=== PATIENT | male | born 1980 | race Caucasian/White ===

== ENCOUNTER → 2016-08-04 | Outpatient (CLI) | payer OTHER ==
--- NOTE | 2016-08-04 17:43 | DX ---
Left Clavicle Series, Two Views, at 1649 hours History: Possible clavicle fracture. Injured clavicle playing hockey last evening. (S42.009A). Findings: There is mild widening of the left AC joint, with mild elevation of the distal head of th e left clavicle, compatible with grade 2 AC joint subluxation. There is a nondisplaced fracture peggy pected, left transverse process of T1 and possibly C7. There is a questionable fracture posterior l eft 3rd rib at the costovertebral junction. No additional fractures are appreciated. The glenohume ral joint is normal in appearance. Soft tissues are unremarkable. Impressions 1. Nondisplaced fractures left transverse process of C7 and T1. 2. Grade 2 separation left AC joint. 3. Questionable fracture posterior left 3rd rib at the costovertebral junction. A Follow-Up Required message has been communicated to RIGOBERTO AWAD MD via the [employer] \ F\ Critical Result system on 08/04/2016 17:34, Message ID [id number].
== END ==
LOC: FIMAGING 16:50
PROVIDERS: ATTEND Family Medicine Sports Medicine
DX: S19.9XXA Unspecified injury of neck, initial encounter (principal); S29.9XXA Unspecified injury of thorax, initial encounter; M25.812 Other specified joint disorders, left shoulder

== ENCOUNTER → 2018-11-11 | Outpatient (CLI) | payer OTHER | LOC: FIMAGING 09:41 | PROVIDERS: ATTEND Family Medicine Sports Medicine | DX: M43.06 Spondylolysis, lumbar region (principal); M51.36 Other intervertebral disc degeneration, lumbar region; M51.35 Other intervertebral disc degeneration, thoracolumbar region ==